=== PATIENT | female | born 1970 | race Hispanic/Latino ===

== ENCOUNTER 2017-03-08 01:57 | Emergency (ER) | payer OTHER ==
[2017-03-08] MEDS ORDERED: HYDROZINE PO (02:26)
[2017-03-08] MEDS ORDERED: [UNRECOGNIZED DRUG - OTHER] PO (02:26)
[2017-03-08] MEDS ORDERED: WELLBUTRIN SR150 MG PO (02:26)
[2017-03-08] MEDS ORDERED: OMEPRAZOLE40 MG PO (02:26)
[2017-03-08] MEDS ORDERED: HYDROMORPHONE 1MG/1ML INJ IV STA (02:28)
[2017-03-08] MEDS ORDERED: ONDANSETRON HCL INJ 2 MG/ML VIAL IV STA (02:28)
[2017-03-08 02:42] LABS: BASOPHILS % 0.1 % (0.0-1.0); EOSINOPHILS # (AUTO) 0.1 (0.0-0.4); EOSINOPHILS % 1.3 % (0.0-6.0); HEMATOCRIT 38.9 % (34.2-44.1); LYMPHOCYTES # (AUTO) 1.4 (1.0-3.2); LYMPHOCYTES % 14.6 % (18.0-39.1); MEAN CORPUSCULAR HEMOGLOBIN 28.7 pg (28-32); MEAN CORPUSCULAR HGB CONC 33.4 g/dL (31-35); MEAN CORPUSCULAR VOLUME 85.9 fL (81-99); MONOCYTES # (AUTO) 0.5 (0.2-0.8); MONOCYTES % 5.2 % (4.4-11.3); NEUTROPHILS # (AUTO) 7.7 (2.1-6.9); NEUTROPHILS % 78.6 % (38.7-80.0); PLATELET COUNT 255 x10e3/uL (140-360); RED BLOOD COUNT 4.53 x10e6/uL (3.6-5.1); RED CELL DISTRIBUTION WIDTH 13.2 % (11.7-14.4)
[2017-03-08 03:00] LABS: ALANINE AMINOTRANSFERASE 16 IU/L (0-55); ALBUMIN 3.9 g/dL (3.5-5.0); ALBUMIN/GLOBULIN RATIO 1.2 (0.8-2.0); ALKALINE PHOSPHATASE 57 IU/L (40-150); BLOOD UREA NITROGEN 13 mg/dL (7-26); BUN/CREATININE RATIO 16 (6-25); CALCIUM 9.5 mg/dL (8.4-10.2); CARBON DIOXIDE 22 mmol/L (22-29); CHLORIDE 109 mmol/L (98-107); CREATININE, SERUM 0.79 mg/dL (0.57-1.11); EST GLOMERULAR FILTRATION RATE > 60 ML/MIN (60-); GLUCOSE 115 mg/dL (74-118); SODIUM 143 mmol/L (136-145)
--- NOTE | 2017-03-08 03:30 | Diagnostic Imaging Report ---
EXAM: CT ABDOMEN AND PELVIS without IV CONTRAST DATE: 03/08/2017 2:28 AM Time stamp on Exam: O [id number] hours INDICATION: Left flank pain COMPARISON: None TECHNIQUE: The abdomen and pelvis were scanned using a multidetector helical scanner. Coronal and sagittal reformations were obtained. Renal stone protocol performed. IV Contrast: None Oral Contrast: None CTDIvol has been reviewed. It is below the limits set by the Radiation Protocol Committee (RPC). FINDINGS: LOWER THORAX: No consolidations LIVER: No masses BILIARY: Cholecystectomy. No ductal dilation. 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 Normal left adrenal gland. RIGHT KIDNEY: No nephroureterolithiasis or hydronephrosis. LEFT KIDNEY: There is a punctate stone in the proximal left ureter at the L3/L4 level. No hydronephrosis. GI TRACT: No distention, wall thickening or evidence of obstruction. Surgical changes of gastric sleeve. Appendectomy. VESSELS: Unremarkable PERITONEUM/RETROPERITONEUM: No free air or fluid LYMPH NODES: Nonspecific 1.5 cm right inguinal canal lymph node. REPRODUCTIVE ORGANS: Hysterectomy. BLADDER: Unremarkable SOFT TISSUES: Unremarkable BONES: No suspicious bone lesions. IMPRESSION: Punctate nonobstructing stone in the proximal left ureter. Signed by: Dr. Sarah Almazan M.D. on 03/08/2017 3:27 AM
[2017-03-08 03:32] LABS: BILIRUBIN,URINE NEGATIVE (NEGATIVE); KETONES,URINE 2+ (NEGATIVE); LEUKOCYTE ESTERASE ,URINE NEGATIVE (NEGATIVE); NITRITE,URINE NEGATIVE (NEGATIVE); PROTEIN,URINE DIPSTICK NEGATIVE (NEGATIVE); URINE UROBILINOGEN 0.2 mg/dL (0.2 - 1)
[2017-03-08 03:37] LABS: CLARITY,URINE CLOUDY (CLEAR); COLOR,URINE AMBER (YELLOW)
[2017-03-08 03:44] LABS: BACTERIA,URINE FEW /HPF; EPITHELIAL CELLS,URINE FEW /LPF; RBC,URINE >50 /HPF (0-5)
[2017-03-08 04:29] VITALS: BP 145/84
[2017-03-09] MEDS ORDERED: TYLENOL WITH C1 EAC1 PO (02:23)
== END 2017-03-08 04:30 | disposition home or self-care (01) ==
LOC: ER 01:57
DX: R10.32 Left lower quadrant pain (principal); R11.2 Nausea with vomiting, unspecified; N20.1 Calculus of ureter
CPT/HCPCS: 36415; 74176; 80053; 81001; 85025; 87086; 99284; J1170; J2405

== ENCOUNTER 2017-03-09 00:45 | Emergency (ER) | payer OTHER ==
[~2017-03-09] VITALS: Ht 160 cm; Wt 90.3 kg
[~2017-03-09 00:45] MED LIST: HYDROZINE PO; OMEPRAZOLE40 MG PO; WELLBUTRIN SR150 MG PO; [UNRECOGNIZED DRUG - OTHER] PO
[2017-03-09] MEDS ORDERED: ONDANSETRON HCL INJ 2 MG/ML VIAL IV STA (00:53)
[2017-03-09] MEDS ORDERED: KETOROLAC TROMETHAMINE 30 MG/ML VIAL IV STA (00:53)
[2017-03-09] MEDS ORDERED: MORPHINE SULFATE 2 MG/ML SYR IV STA (00:53)
[2017-03-09] MEDS ORDERED: SODIUM CHLORIDE 0.9% 1000ML 1,000 ML IV STA (00:53)
[2017-03-09] MEDS ORDERED: TYLENOL WITH C1 EAC1 PO (02:23)
[2017-03-09 02:28] VITALS: BP 119/72
== END 2017-03-09 02:57 | disposition home or self-care (01) ==
LOC: ER 00:45
DX: R10.9 Unspecified abdominal pain (principal); N20.1 Calculus of ureter; Z94.4 Liver transplant status
CPT/HCPCS: 99283; J2270; J2405; J7030